=== PATIENT | female | born 2000 | race Native Hawaiian/Other Pacific Islander ===

== ENCOUNTER 2020-03-26 16:18 | Emergency (ER) | payer OTHER ==
[~2020-03-26] VITALS: Ht 152.4 cm; Wt 87.3 kg
[2020-03-26 17:15] LABS: PLATELET COUNT 206 K/uL (152-353)
[2020-03-26 17:23] LABS: POTASSIUM 3.3 mmol/L (3.6-5.2)
[2020-03-26 20:50] VITALS: BP 108/59; TEMP 98.5
== END 2020-03-26 20:52 | disposition home or self-care (01) ==
LOC: ED 16:18
PROVIDERS: Emergency Medicine Emergency Medical Services
DX: U07.1 COVID-19 (principal); N12 Tubulo-interstitial nephritis, not specified as acute or chronic
CPT/HCPCS: 36415; 80053; 81000; 81025; 85027; 87077; 87086; 87088; 87186; 87635; 96360; 96365; 96375; 99284; J0696; J2405; Q9963; U0003

== ENCOUNTER 2021-01-21 11:22 | Emergency (ER) | payer OTHER ==
[~2021-01-21] VITALS: Ht 152.4 cm; Wt 87.1 kg
[2021-01-21 11:22] VITALS: TEMP 98
[2021-01-21 13:13] VITALS: BP 110/74
== END 2021-01-21 13:13 | disposition home or self-care (01) ==
LOC: ED 11:22
DX: S13.4XXA Sprain of ligaments of cervical spine, initial encounter (principal); S13.8XXA Sprain of joints and ligaments of other parts of neck, initial encounter; S40.211A Abrasion of right shoulder, initial encounter; V49.50XA Passenger injured in collision with unspecified motor vehicles in traffic accident, initial encounter; Y92.89 Other specified places as the place of occurrence of the external cause
CPT/HCPCS: 96374; 99284; J1885